=== PATIENT | female | born 1945 | race Caucasian/White ===

== ENCOUNTER 2017-04-30 00:21 | Inpatient (IN) | payer MEDICAID ==
[~2017-04-30] VITALS: Ht 152.4 cm; Wt 73.9 kg
[~2017-04-30 00:21] MED LIST: 70/30 INSULIN SUBCUT; ASPI-1158 PO; BISA-81 PO; CARV6.2548 PO; CLOP75TA16 PO; FERR-43 PO; HYDR-523 PO; LIP40 PO; LOSA25TA12 PO; REN800 PO
[2017-04-30] MEDS ORDERED: KETOROLAC 15MG/ML VIAL IV ONE (01:15)
[2017-04-30 01:27] LABS: BASOPHILS % 0.6 % (0.0-2.0); EOSINOPHILS % 2.2 % (0.0-5.0); HEMATOCRIT. 31.1 % (36.0-48.0); HEMOGLOBIN. 10.5 g/dL (12.0-16.0); LYMPHOCYTES % 15.6 % (20.0-50.0); MEAN CORPUSCULAR VOLUME 88.9 fL (81.0-99.0); MEAN PLATELET VOLUME 8.8 fl (7.4-10.4); MONOCYTES % 8.1 % (2.0-8.0); NEUTROPHILS % 73.5 % (40.0-76.0); PLATELET 186 x1000/uL (130-400); RED CELL DISTRIBUTION WIDTH 14.2 % (11.6-14.6)
[2017-04-30] MEDS ORDERED: ONDANSETRON HCL 4MG/2ML VIAL IV SCH (03:00)
[2017-04-30] MEDS ORDERED: MORPHINE SULFATE 4 MG/ML CPJ (NOT FOR IM USE) IV SCH (03:00)
[2017-04-30] MEDS ORDERED: NITROGLYCERIN 0.4MG TABLET SL SL PRN (08:15)
[2017-04-30] MEDS ORDERED: MAGNESIUM/ALUMINUM HYDROXIDE/SIMETHICONE 30ML UDC PO PRN (08:15)
[2017-04-30] MEDS ORDERED: NA PHOS,M-B/NA PHOS,DI-BA ENEMA 118ML PR PRN (08:15)
[2017-04-30] MEDS ORDERED: IPRATROPIUM/ALBUTEROL 0.5-3(2.5)MG/3ML NEB INH PRN (08:15)
[2017-04-30] MEDS ORDERED: LORAZEPAM 2MG/ML CPJ IV PRN (08:15)
[2017-04-30] MEDS ORDERED: GUAIFENESIN 200MG/10ML SUGAR FREE UDC PO PRN (08:15)
[2017-04-30] MEDS ORDERED: DOCUSATE SODIUM 100MG CAPSULE PO PRN (08:15)
[2017-04-30] MEDS ORDERED: ONDANSETRON HCL 4MG/2ML VIAL IV PRN (08:15)
[2017-04-30] MEDS ORDERED: ACETAMINOPHEN 325MG TABLET PO PRN (08:15)
[2017-04-30] MEDS ORDERED: CLONIDINE 0.1MG TABLET PO PRN (08:15)
[2017-04-30] MEDS: FOLIC ACID/VITAMIN B COMP W-C TABLET PO SCH ×2 (09:00→18:40)
[2017-04-30] MEDS: AMLODIPINE 10MG TABLET PO SCH (09:00)
[2017-04-30] MEDS: MORPHINE SULFATE 4 MG/ML CPJ (NOT FOR IM USE) IV PRN ×2 (12:29→20:50)
[2017-04-30 13:55] VITALS: BP 166/63
[2017-04-30 14:00] VITALS: BP 166/63
[2017-04-30] MEDS: HYDRALAZINE HCL 50MG TABLET PO SCH ×2 (14:30→20:48)
[2017-04-30] MEDS: ENOXAPARIN 30MG/0.3ML SYR SUBCUT SCH ×2 (15:00→18:41)
[2017-04-30 15:29] LABS: CREATINE KINASE MB FRACTION 2.9 ng/mL (0.5-3.6); TROPONIN I 0.02 ng/mL (0.00-0.04)
[2017-04-30 16:00] VITALS: BP 115/45
[2017-04-30 18:05] VITALS: BP 145/55
[2017-04-30] MEDS: SEVELAMER CARBONATE 800 MG TABLET PO SCH (18:40)
[2017-04-30 20:00] VITALS: BP 154/58
[2017-04-30] MEDS: CARVEDILOL 3.125 MG TABLET PO SCH (20:47)
[2017-04-30] MEDS: LISINOPRIL 20MG TABLET PO SCH (20:49)
[2017-04-30] MEDS: FAMOTIDINE 20MG/2ML VIAL IV SCH (20:49)
[2017-04-30] MEDS ORDERED: ZOLPIDEM TARTRATE 5MG TABLET PO PRN (21:00)
[2017-04-30] MEDS: DIPHENHYDRAMINE 50MG/ML VIAL IV PRN (21:06)
[2017-04-30 22:00] VITALS: BP 135/40
[2017-04-30 23:48] LABS: CREATINE KINASE MB FRACTION 2.8 ng/mL (0.5-3.6); TROPONIN I 0.03 ng/mL (0.00-0.04)
[2017-05-01] VITALS (12 sets, daily range): BP systolic 136–166; BP diastolic 52–70
[2017-05-01] MEDS: HYDRALAZINE HCL 50MG TABLET PO SCH ×3 (05:35→22:00)
[2017-05-01 06:20] LABS: BASOPHILS % 0.7 % (0.0-2.0); EOSINOPHILS % 3.3 % (0.0-5.0); HEMATOCRIT. 30.1 % (36.0-48.0); MEAN CORPUSCULAR HEMOGLOBIN 30.4 pg (28.0-32.0); MEAN PLATELET VOLUME 9.5 fl (7.4-10.4); MONOCYTES % 9.1 % (2.0-8.0); NEUTROPHILS % 69.9 % (40.0-76.0); PLATELET 186 x1000/uL (130-400); RED CELL DISTRIBUTION WIDTH 14.5 % (11.6-14.6)
[2017-05-01] MEDS: SEVELAMER CARBONATE 800 MG TABLET PO SCH ×3 (08:34→18:06)
[2017-05-01] MEDS: CARVEDILOL 3.125 MG TABLET PO SCH ×2 (08:35→20:58)
[2017-05-01] MEDS: FOLIC ACID/VITAMIN B COMP W-C TABLET PO SCH (08:35)
[2017-05-01] MEDS: AMLODIPINE 10MG TABLET PO SCH (08:36)
[2017-05-01] MEDS: LISINOPRIL 20MG TABLET PO SCH ×2 (08:36→20:57)
[2017-05-01] MEDS: TRAMADOL 50MG TABLET PO PRN (16:05)
[2017-05-01] MEDS: ENOXAPARIN 30MG/0.3ML SYR SUBCUT SCH (16:07)
[2017-05-01] MEDS: FAMOTIDINE 20MG/2ML VIAL IV SCH (20:51)
[2017-05-02] VITALS (10 sets, daily range): BP systolic 124–166; BP diastolic 50–60
[2017-05-02] MEDS: DIPHENHYDRAMINE 50MG/ML VIAL IV PRN (04:41)
[2017-05-02] MEDS: MORPHINE SULFATE 4 MG/ML CPJ (NOT FOR IM USE) IV PRN (04:42)
[2017-05-02] MEDS: HYDRALAZINE HCL 50MG TABLET PO SCH ×2 (06:00→14:37)
[2017-05-02 07:44] LABS: BASOPHILS % 0.7 % (0.0-2.0); EOSINOPHILS % 2.8 % (0.0-5.0); HEMATOCRIT. 29.7 % (36.0-48.0); HEMOGLOBIN. 9.9 g/dL (12.0-16.0); LYMPHOCYTES % 21.1 % (20.0-50.0); MEAN CORPUSCULAR HEMOGLOBIN 30.3 pg (28.0-32.0); MEAN CORPUSCULAR VOLUME 90.9 fL (81.0-99.0); MEAN PLATELET VOLUME 10.1 fl (7.4-10.4); MONOCYTES % 9.2 % (2.0-8.0); NEUTROPHILS % 66.2 % (40.0-76.0); PLATELET 170 x1000/uL (130-400); RED BLOOD CELL COUNT 3.26 mill/uL (4.2-5.4); RED CELL DISTRIBUTION WIDTH 14.4 % (11.6-14.6)
[2017-05-02] MEDS: LISINOPRIL 20MG TABLET PO SCH (08:14)
[2017-05-02] MEDS: SEVELAMER CARBONATE 800 MG TABLET PO SCH ×2 (08:14→13:41)
[2017-05-02] MEDS: FOLIC ACID/VITAMIN B COMP W-C TABLET PO SCH (08:14)
[2017-05-02] MEDS: AMLODIPINE 10MG TABLET PO SCH (08:14)
[2017-05-02] MEDS: CARVEDILOL 3.125 MG TABLET PO SCH (08:15)
[2017-05-02] MEDS: TRAMADOL 50MG TABLET PO PRN (08:49)
== END 2017-05-02 17:15 | disposition home or self-care (01) | DRG 347 ==
LOC: ER 00:22 → 5EST 05:36 → EDBEDREQ 06:05 → ENRESERV 12:40
PROVIDERS: ADMIT Internal Medicine; ATTEND Internal Medicine
PROC: 5A1D60Z (ICD-10-PCS; principal; 2017-04-30)
DX: S12.501A Unspecified nondisplaced fracture of sixth cervical vertebra, initial encounter for closed fracture (principal); N18.6 End stage renal disease; I12.0 Hypertensive chronic kidney disease with stage 5 chronic kidney disease or end stage renal disease; E11.22 Type 2 diabetes mellitus with diabetic chronic kidney disease; M47.9 Spondylosis, unspecified; E78.5 Hyperlipidemia, unspecified; E11.319 Type 2 diabetes mellitus with unspecified diabetic retinopathy without macular edema; E11.65 Type 2 diabetes mellitus with hyperglycemia; E87.1 Hypo-osmolality and hyponatremia; E11.40 Type 2 diabetes mellitus with diabetic neuropathy, unspecified; D63.8 Anemia in other chronic diseases classified elsewhere; H54.8 Legal blindness, as defined in USA; E78.00 Pure hypercholesterolemia, unspecified; W18.39XA Other fall on same level, initial encounter; Y93.01 Activity, walking, marching and hiking; Y92.89 Other specified places as the place of occurrence of the external cause; Y99.8 Other external cause status; Z86.73 Personal history of transient ischemic attack (TIA), and cerebral infarction without residual deficits; Z79.4 Long term (current) use of insulin; Z99.2 Dependence on renal dialysis
CPT/HCPCS: 36415; 70450; 71010; 72125; 72141; 80048; 80061; 82550; 82553; 82962; 83036; 83735; 84132; 84484; 85025; 93005; 96374; 96375; 97162; 99285; J1200; J1650; J1885; J2270; J3490; L0172